=== PATIENT | female | born 1995 | race Caucasian/White ===

== ENCOUNTER 2018-12-14 12:48 | Emergency (ER) | payer OTHER, MEDICAID ==
[~2018-12-14] VITALS: Ht 162.6 cm; Wt 99.8 kg
[2018-12-14] MEDS ORDERED: PRENATAL (12:57)
[2018-12-14] MEDS ORDERED: NAUSEA MED (12:58)
[2018-12-14 13:34] LABS: HEMATOCRIT 37.4 % (37.0-47.0); MCH 31.2 pg (26.0-34.0); MCHC 34.7 g/dL (28.0-37.0); MCV 89.8 fL (80.0-100.0); MPV 9.9 fl. (7.2-11.1); NUCLEATED RBCS 0 /100WBC; PLATELET COUNT* 198 thou/uL (150-400); RBC 4.16 mil/uL (4.20-5.00); RDW-CV 13.1 % (10.5-14.5); WBC 12.2 thou/uL (4.0-11.0)
[2018-12-14 13:43] LABS: ALBUMIN 2.7 g/dL (3.4-5.0); CREATININE 0.5 mg/dL (0.6-1.3); POTASSIUM 3.5 mmol/L (3.5-5.1); TOTAL BILIRUBIN 0.7 mg/dL (<0.1-1.0); TOTAL PROTEIN 6.6 g/dL (6.4-8.2)
[2018-12-14 13:56] LABS: ABSOLUTE LYMPHOCYTES 0.4 thou/uL (0.8-5.3); ABSOLUTE MONOCYTES 0.4 thou/uL (0.0-1.2); ABSOLUTE NEUTROPHILS 11.5 thou/uL (1.6-8.1); PLATELET ESTIMATE ADEQUATE
[2018-12-14 14:31] LABS: URINE BLOOD NEGATIVE (Negative); URINE CLARITY CLEAR; URINE COLOR YELLOW; URINE GLUCOSE-RANDOM NEGATIVE (Negative); URINE LEUKOCYTES NEGATIVE (Negative); URINE NITRITE NEGATIVE (Negative); URINE PROTEIN TRACE (Negative); URINE SPECIFIC GRAVITY 1.015 (1.005-1.030); URINE UROBILINOGEN 0.2 E.U./dl (0.2-1.0)
[2018-12-14 14:36] LABS: URINE BILIRUBIN 1+ (Negative); URINE KETONES 3+ (Negative)
[2018-12-14 14:38] LABS: ACETEST (KETONE CONFIRMATORY) Small (Negative)
[2018-12-14 14:39] LABS: ICTOTEST (BILI CONFIRMATORY) Negative (Negative)
[2018-12-14] MEDS ORDERED: ZOFRAN ODT4 MG DISSOLVE (15:32)
[2018-12-14 15:38] VITALS: BP 140/85
== END 2018-12-14 15:39 | disposition home or self-care (01) ==
LOC: M.ERS 12:48
PROVIDERS: Nurse Practitioner Family
DX: O26.892 Other specified pregnancy related conditions, second trimester (principal); O21.8 Other vomiting complicating pregnancy; R10.9 Unspecified abdominal pain; Z3A.21 21 weeks gestation of pregnancy

== ENCOUNTER 2019-04-20 09:20 | Inpatient (IN) | payer OTHER, MEDICAID ==
[~2019-04-20] VITALS: Ht 160 cm; Wt 99.8 kg
--- NOTE | ~2019-04-20 | OP ---
[address] [address] OPERATIVE REPORT Name: NIKOLAI DYE Teo Room: [address] IN M.R.#: [id number] Admission: 04/20/19 Attend Phys: Pia Cox MD Discharge: Date of : 89 Report #: [id number] THIS REPORT FOR: //name// CC: Duane Cox DICTATED BY: Higinio Strickland DO DATE OF SERVICE: 04/20/2019 PREOPERATIVE DIAGNOSES: Acute cholecystitis with cholelithiasis, transaminitis and possible choledocholithiasis. POSTOPERATIVE DIAGNOSES: Acute cholecystitis with cholelithiasis. PRIMARY SURGEON: Sruthi Solo DO CO-SURGEON: Higinio Strickland DO, PGY-3. PHYSICAL METEOROLOGIST: Barrera Simpson MS4. OPERATION PERFORMED: Laparoscopic cholecystectomy with intraoperative cholangiogram. ANESTHESIA: General and local. ESTIMATED BLOOD LOSS: 10 mL. SPECIMEN REMOVED: Gallbladder. COMPLICATIONS: None. FINDINGS: Cholangiogram with surgeon interpretation of fluoroscopy. Normal filling of the biliary tree without obstruction or CBD stones. Contrast flowed freely into the duodenum. INDICATIONS: The patient is a pleasant 23-year-old female who presented to the ED today with chief complaint of increasing right upper quadrant abdominal pain that started last night. She is 2 weeks from a normal vaginal delivery and reports having intermittent right upper quadrant abdominal pain throughout her . The patient was found to have a leukocytosis of 13.5, elevated LFTs, normal bilirubin and lipase and distended gallbladder with cholelithiasis and gallstone in the neck of the gallbladder. I recommended laparoscopic cholecystectomy with intraoperative cholangiogram. Full discussion of procedure, alternatives, risks and possible complications discussed include but not limited to bleeding, infection, postoperative pain, scarring, hernia, [place] [address] OPERATIVE REPORT Name: NIKOLAI DYE Teo Room: [address] IN R.#: [id number] Admission: 04/20/19 Attend Phys: Pia Cox MD Discharge: Date of : 89 Report #: [id number] conversion to open procedure, bile leak, biloma, injury to other underlying abdominal organs mainly stomach, bowel bile ducts and liver if bile duct injury were to occur transfer to tertiary care facility for additional intervention with hepatobiliary specialist and anesthesia risks. The patient voiced understanding of these risks and agreed to proceed to the OR. DESCRIPTION OF PROCEDURE: The patient was again seen and examined in preoperative holding. Fully informed written consent was obtained. Preoperative antibiotics, 2 grams Ancef were given. The patient was subsequently transported to the operating room suite and placed on the operating table in supine position. At this time, anesthesia induced general anesthesia via endotracheal intubation. This was successful. Footboard was placed at the patient's feet. SCDs were placed to bilateral lower extremity calves. Grounding pad was placed in the right lateral thigh. Right arm was tucked. Left arm was placed on an arm board. The patient was prepped and draped using standard sterile fashion. Time-out was performed prior to onset of procedure. We began by making a horizontal incision inferior to the umbilicus using open Veras technique, we dissected down through dermis and subcutaneous tissue to reach the level of the fascia. Fascia was grasped with bilateral Kochers, elevated and transected with electrocautery. Hemostat was used to alcaraz the peritoneum. Finger sweep was performed to ensure we were into the abdomen. There were no adhesions. Next, 2-0 Vicryl stay sutures were placed to the bilateral fascial edges. A 12 mm Luis trocar was placed in the abdomen. Abdomen was insufflated first using low flow then high flow. A 5 mm 0-degree laparoscopic camera was placed in the abdomen, noting no underlying injury upon entry into the abdomen. We then turned our attention to the right upper quadrant. There was a grossly distended, edematous and firm gallbladder. The patient was placed in reverse Trendelenburg with left side down. An additional 5 mm trocar was placed in the epigastric region and two additional 5 mm trocars were placed in the right upper quadrant. At this time, a laparoscopic irrigation decompression needle was placed into the abdomen and the gallbladder was decompressed 30 mL of normal-appearing bile. Next, the gallbladder was grasped with a locking wavy grasper elevated using a blunt grasper and electrocautery. Catherine's pouch was grasped. Peritoneal attachments and adhesions were taken down. Once the cystic duct was identified, it was dissected out circumferentially using Maryland grasper. The cystic artery was noted to be just posterior to this and this was also dissected out circumferentially with [place] grasper. At this time, we proceeded with our cholangiogram. A Morrison clamp was placed in the lateral right upper quadrant trocar. This was placed across the proximal cystic duct. The catheter was placed into the cystic duct. Bile was aspirated through the catheter and normal saline flushed easily. C-arm was brought onto the field. Cholangiogram was performed with direct surgeon interpretation of imaging. The normal filling of the biliary tree was seen without obstruction or CBD stones. Contrast flowed freely into the duodenum. Next, C-arm was removed from the patient's side. A Morrison clamp and catheter were removed. Cystic duct was then clipped with 5 mm [facility] [address] [facility] [place] [id number] OPERATIVE REPORT Name: NIKOLAI DYE Room: [address] IN M.R.#: [id number] Admission: 04/20/19 Attend Phys: Pia Cox MD Discharge: Date of : 89 Report #: [id number] clip brand ambassadors promotional sales twice distally and twice proximally. Cystic artery was clipped twice distally and once proximally. These were transected using laparoscopic scissors. Next, the gallbladder was then removed through the liver bed using electrocautery. Hemostasis was achieved with electrocautery. Gallbladder was placed into an EndoCatch bag through the umbilical trocar. Once this was performed, the right upper quadrant was copiously suctioned and irrigated. We then directly viewed our clips again. Intraoperative pictures were obtained. Of note, critical view of safety was obtained prior to clipping the duct and artery and the intraoperative pictures were also obtained of these images. Next, abdomen was desufflated under direct visualization, 5 mm trocars were removed. Once the abdomen was fully desufflated, camera was removed. Luis trocar was next removed and then the gallbladder was removed through the umbilical incision in the EndoCatch bag. Next Kochers were placed to bilateral fascial edges and the fascia was closed with interrupted [id number] 0 Vicryl suture. A layered closure was then performed in the subcutaneous and dermal layers using 3-0 Vicryl. Skin was closed using a running subcuticular 4-0 Monocryl. Each of the 5 mm trocar sites was closed using an interrupted 4-0 Monocryl. A 60 mL 0.5% Marcaine was used for local anesthetic and throughout the entirety of procedure. Abdomen was cleansed using wet and dry lap. Sterile dressings applied. Mastisol, Steri-Strips, 4 x 4's, Tegaderms. The patient tolerated the procedure well and was extubated in the OR, transferred to PACU in stable condition after brief recovery from anesthesia. PLAN: To return to the floor for ongoing care with plans to discharge in the morning that is pending. The patient tolerates diet, pain controlled with p.o. meds and she ambulates. By: [id number] Solo DO /nt
[~2019-04-20 09:20] MED LIST: NAUSEA MED; PRENATAL; ZOFRAN ODT4 MG DISSOLVE
[2019-04-20 09:36] VITALS: BP 156/74
[2019-04-20 10:03] LABS: ABSOLUTE EOSINOPHILS 0.1 thou/uL (0.0-0.7); ABSOLUTE LYMPHOCYTES 2.2 thou/uL (0.8-5.3); ABSOLUTE MONOCYTES 1.2 thou/uL (0.0-1.2); ABSOLUTE NEUTROPHILS 9.9 thou/uL (1.6-8.1); BASOPHILS 0.3 %; EOSINOPHILS 0.4 %; HEMATOCRIT 42.6 % (37.0-47.0); HEMOGLOBIN 14.4 gm/dL (12.0-15.0); LYMPHOCYTES 16.5 %; MCH 30.4 pg (26.0-34.0); MCHC 33.7 g/dL (28.0-37.0); MCV 90.3 fL (80.0-100.0); MPV 8.9 fl. (7.2-11.1); NUCLEATED RBCS 0 /100WBC; PLATELET COUNT* 311 thou/uL (150-400); POLYS 73.8 %; RBC 4.72 mil/uL (4.20-5.00); RDW-CV 12.8 % (10.5-14.5); WBC 13.5 thou/uL (4.0-11.0)
[2019-04-20 10:13] LABS: CALCIUM 8.3 mg/dL (8.5-10.1); CREATININE 0.8 mg/dL (0.6-1.3)
[2019-04-20 10:15] LABS: URINE BLOOD NEGATIVE (Negative); URINE CLARITY CLEAR; URINE COLOR YELLOW; URINE GLUCOSE-RANDOM NEGATIVE (Negative); URINE KETONES NEGATIVE (Negative); URINE LEUKOCYTES-REFLEX NEGATIVE (Negative); URINE NITRITE-REFLEX NEGATIVE (Negative); URINE PROTEIN 1+ (Negative); URINE SPECIFIC GRAVITY 1.015 (1.005-1.030)
[2019-04-20 10:17] LABS: ICTOTEST (BILI CONFIRMATORY) Negative (Negative); URINE BILIRUBIN 1+ (Negative)
[2019-04-20 10:18] LABS: TOTAL BILIRUBIN 0.5 mg/dL (<0.1-1.0); TOTAL PROTEIN 6.9 g/dL (6.4-8.2)
--- NOTE | 2019-04-20 10:49 | NUR ---
CHA NOTIFIED UPON PT RETURN FROM CT. PT CONNECTED TO BP AND PULSE OX MONITOR
--- NOTE | 2019-04-20 13:19 | NUR ---
REPORT GIVEN TO ALEXX SIMPSON WHO IS TO ASSUME PT CARE INPATIENT NURSE.
[2019-04-20 13:20] VITALS: BP 125/68
[2019-04-20 13:30] VITALS: BP 123/74
--- NOTE | 2019-04-20 16:20 | NUR ---
PATIENT TRANSFERRED PER BED TO PRE FOR SURGICAL PROCEDURE PER SURGICAL TEAM. PATIENT ALERT AND ORIENTED AT TIME OF TRANSFER. IV CATH SITE WNL.
[2019-04-20 21:29] VITALS: BP 127/77
[2019-04-21] VITALS: BP 132/75
[2019-04-21 04:00] VITALS: BP 140/82
[2019-04-21 05:34] LABS: HEMATOCRIT 40.1 % (37.0-47.0); HEMOGLOBIN 13.1 gm/dL (12.0-15.0); MCH 30.4 pg (26.0-34.0); MCHC 32.7 g/dL (28.0-37.0); MPV 9.2 fl. (7.2-11.1); RBC 4.32 mil/uL (4.20-5.00); RDW-CV 12.8 % (10.5-14.5); WBC 8.9 thou/uL (4.0-11.0)
[2019-04-21 05:53] LABS: ALBUMIN 2.7 g/dL (3.4-5.0); CALCIUM 7.7 mg/dL (8.5-10.1); CREATININE 0.7 mg/dL (0.6-1.3); MAGNESIUM 1.8 mg/dL (1.8-2.4); POTASSIUM 4.5 mmol/L (3.5-5.1); TOTAL BILIRUBIN 0.8 mg/dL (<0.1-1.0); TOTAL PROTEIN 6.2 g/dL (6.4-8.2)
--- NOTE | 2019-04-21 06:41 | NUR ---
SHE REPORTED HER PAIN 8/10 A MAJORITY OF SHIFT. SHE WAS GETTING RELIEF FROM PAIN AFTER GETTING OXY IR AT 0130. SHE WAS THEN ABLE TO GET SOME REST. SHE IS AMBULATING WELL TO THE BATHROOM AND IS OK WITH TAKING JUST PO MEDS FROM NOW ON. SHE SAYS THE FENTANYL IS NOT HELPING WITH HER PAIN. NS AT 100 ML/HR AND SCHEDULED TORODOL. OXY IR Q4
[2019-04-21 07:45] VITALS: BP 132/74
[2019-04-21 08:14] VITALS: BP 140/82
[2019-04-21] MEDS ORDERED: PEPCID20 MG PO (09:19)
[2019-04-21] MEDS ORDERED: COLACE 100 MG100 MG PO (09:19)
[2019-04-21] MEDS ORDERED: OXYCODONE HCL 55 MG PO (09:19)
[2019-04-21] MEDS ORDERED: PROTONIX40 M1 PO (09:19)
--- NOTE | 2019-04-21 12:20 | NUR ---
PATIENT DISCHARGED TO HOME. DISCHARGE PAPERS REVIEWED AND SIGNED. PRESCRIPTIONS AND INFORMATION SHEETS GIVEN. IV REMOVED. PATIENT DENIES ANY FURTHER NEEDS. PATIENT TAKEN BY WHEELCAHIR TO EXIT. LEFT WITH .
--- NOTE | 2019-04-24 18:06 | PATH ---
[facility] [address] [place] [address] PATHOLOGY RPT PROCEDURE Name: ARLEEN DYE Room: [address] IN M.R.#: [id number] Admission: 04/20/19 Date of : 89 Discharge: 04/21/19 Report #: [id number] Path Case #: [id number] [facility] Accession Number: [id number] . 01 Material submitted: . gallbladder - GALLBLADDER . 01 Clinical history: . Acute cholecystitis with cholelithiasis and possible blocked CBD . 02 Diagnosis: Gallbladder: - Chronic and acute cholecystitis with cholesterolosis and cholelithiasis. (ROX:andreina; 04/24/2019) QMS/04/24/2019 . 02 Electronically signed: . Umair Tong MD, Pathologist NPI- [id number] . 01 Gross description: . The specimen is received in formalin labeled "Zana, Arleen, gallbladder" and consists of an intact green gallbladder measuring 7.1 cm in length and up to 2.8 cm in diameter. The margin is inked black. Opening reveals a lumen filled with viscous green bile and multiple mulberry yellow calculi measuring up to 0.4 cm. The mucosa is green with yellow stippling and an average wall thickness of 0.1 cm. No masses are identified. Court Stenographer sections are submitted in A1. (SDY; 04/21/2019) SYU/SYU . 02 Pathologist provided ICD-10: K80.12, K82.4 . 02 CPT . 856164 Specimen Comment: A courtesy copy of this report has been sent to Specimen Comment: [phone], . Specimen Comment: Report sent to / DR HANEY Performed at: [address], [place], [place] [id number] MD Asher Ramírez MD Phone: [phone] Performed at: 02 [facility] [address], [place], [place] [id number] MD Umair Tong MD Phone: [phone]
== END 2019-04-21 12:20 | disposition home or self-care (01) | DRG 419 ==
LOC: M.ERS 09:20 → M.ORTHSURG 12:21 → M.TBA-ER 12:21 → M.ORTHSURG 13:24
PROVIDERS: Emergency Medicine Emergency Medical Services; Surgery; ADMIT Internal Medicine
PROC: 0FT44ZZ Resection of Gallbladder, Percutaneous Endoscopic Approach (ICD-10-PCS; principal; 2019-04-20)
PROC: BF121ZZ Fluoroscopy of Gallbladder using Low Osmolar Contrast (ICD-10-PCS; principal; 2019-04-20)
DX: K80.63 Calculus of gallbladder and bile duct with acute cholecystitis with obstruction (principal); F17.210 Nicotine dependence, cigarettes, uncomplicated; K21.9 Gastro-esophageal reflux disease without esophagitis; F41.9 Anxiety disorder, unspecified; G43.909 Migraine, unspecified, not intractable, without status migrainosus; F32.9 Major depressive disorder, single episode, unspecified; D72.829 Elevated white blood cell count, unspecified; Z83.79 Family history of other diseases of the digestive system; Z79.899 Other long term (current) drug therapy

== ENCOUNTER 2019-10-10 13:35 | Emergency (ER) | payer OTHER, MEDICAID ==
[~2019-10-10] VITALS: Ht 160 cm; Wt 106.1 kg
[~2019-10-10 13:35] MED LIST changes: +COLACE 100 MG100 MG PO; +OXYCODONE HCL 55 MG PO; +PEPCID20 MG PO; +PROTONIX40 M1 PO
[2019-10-10] MEDS ORDERED: WELLBUTRIN SR100 MG PO (13:56)
[2019-10-10] MEDS ORDERED: ZANAFLEX4 MG PO (14:59)
[2019-10-10] MEDS ORDERED: NORCO 5-325 TA1 EAC1 PO (14:59)
[2019-10-10] MEDS ORDERED: IBUPROFEN 800800 M1 PO (14:59)
[2019-10-10] MEDS ORDERED: ONDANSETRON HCL4 M2 PO (15:33)
[2019-10-10 15:47] VITALS: BP 131/70
== END 2019-10-10 15:48 | disposition home or self-care (01) ==
LOC: M.ERS 13:35
DX: S06.0X0A Concussion without loss of consciousness, initial encounter (principal); S16.1XXA Strain of muscle, fascia and tendon at neck level, initial encounter; F17.210 Nicotine dependence, cigarettes, uncomplicated; Y08.89XA Assault by other specified means, initial encounter; Y93.89 Activity, other specified; Y92.89 Other specified places as the place of occurrence of the external cause; Y99.8 Other external cause status

== ENCOUNTER 2019-11-16 11:52 | Emergency (ER) | payer OTHER, MEDICAID ==
[~2019-11-16] VITALS: Ht 160 cm; Wt 104.3 kg
[~2019-11-16 11:52] MED LIST changes: +IBUPROFEN 800800 M1 PO; +NORCO 5-325 TA1 EAC1 PO; +ONDANSETRON HCL4 M2 PO; +WELLBUTRIN SR100 MG PO; +ZANAFLEX4 MG PO
[2019-11-16 12:46] LABS: INFLUENZA A ANTIGEN Negative (Negative)
[2019-11-16] MEDS ORDERED: PROAIR HFA8.5 GM INH (13:01)
[2019-11-16] MEDS ORDERED: TYLENOL WITH CO1 TA1 PO (13:01)
[2019-11-16] MEDS ORDERED: TESSALON PERLE100 MG PO (13:01)
[2019-11-16 13:13] VITALS: BP 123/58
== END 2019-11-16 13:14 | disposition home or self-care (01) ==
LOC: M.ERS 11:52
PROVIDERS: Physician Assistant
DX: J10.1 Influenza due to other identified influenza virus with other respiratory manifestations (principal); F17.210 Nicotine dependence, cigarettes, uncomplicated; Z90.49 Acquired absence of other specified parts of digestive tract

== ENCOUNTER 2021-05-24 11:45 | Emergency (ER) | payer OTHER, MEDICAID ==
[~2021-05-24] VITALS: Ht 162.6 cm; Wt 127.0 kg
[~2021-05-24 11:45] MED LIST changes: +PROAIR HFA8.5 GM INH; +TESSALON PERLE100 MG PO; +TYLENOL WITH CO1 TA1 PO
[2021-05-24 13:05] VITALS: BP 147/88
== END 2021-05-24 13:05 | disposition home or self-care (01) ==
LOC: M.ERS 11:45
DX: R05 Cough (principal); Z20.822 Contact with and (suspected) exposure to COVID-19; R06.00 Dyspnea, unspecified; M79.10 Myalgia, unspecified site; R63.0 Anorexia; F17.210 Nicotine dependence, cigarettes, uncomplicated

== ENCOUNTER 2021-09-05 14:58 | Emergency (ER) | payer OTHER, MEDICAID ==
[~2021-09-05] VITALS: Ht 162.6 cm; Wt 117.9 kg
[2021-09-05 16:26] VITALS: BP 181/92
== END 2021-09-05 16:28 | disposition home or self-care (01) ==
LOC: M.ERS 14:58
DX: S67.197A Crushing injury of left little finger, initial encounter (principal); F17.210 Nicotine dependence, cigarettes, uncomplicated; Z90.49 Acquired absence of other specified parts of digestive tract; X58.XXXA Exposure to other specified factors, initial encounter; Y93.89 Activity, other specified; Y92.89 Other specified places as the place of occurrence of the external cause; Y99.8 Other external cause status